=== PATIENT | male | born 1985 | race Two or more races ===

== ENCOUNTER → 2022-06-24 15:37 | Emergency (ER) | payer BC, OTHER ==
[~2022-06-24] VITALS: Ht 177.8 cm; Wt 75.0 kg
[2022-06-24 16:22] LABS: Basophils # (auto) 0 10 ^3/uL (0-0.2); Basophils % (auto) 0.3 % (0.0-2.0); Eosinophils # (auto) 0.1 10 ^3/uL (0-0.8); Eosinophils % (auto) 0.9 % (0.0-7.0); Hematocrit 45.1 % (41.0-53.0); Hemoglobin 15.5 g/dL (13.5-17.5); Lymphocytes # (auto) 2.3 10 ^3/uL (0.4-5.4); Lymphocytes % (auto) 26.7 % (10.0-50.0); Mean Corpuscular Hemoglobin 30.6 pg (28.0-32.0); Mean Corpuscular Hgb Conc. 34.4 g/dL (32.0-36.0); Mean Corpuscular Volume 88.9 fL (80.0-100.0); Monocytes # (auto) 0.4 10 ^3/uL (0-1.3); Monocytes % (auto) 4.6 % (0.0-12.0); Neutrophils # (auto) 5.9 10 ^3/uL (1.6-8.6); Neutrophils % (auto) 67.5 % (37.0-80.0); Nucleated Red Blood Cells % 0.1 %; Red Blood Cells 5.08 10^6/uL (4.5-5.90); Red Cell Distribution Width 12.8 % (11.8-14.3); White Blood Cell 8.7 10^3/uL (4.4-10.8)
[2022-06-24 16:41] LABS: Albumin 4.1 g/dL (3.4-5.0); Calcium 9.1 mg/dL (8.5-10.1); Potassium 3.7 mmol/L (3.5-5.1)
[2022-06-24 16:43] LABS: BUN/Creatinine Ratio 17.4
[2022-06-24 16:46] LABS: Bilirubin, Total 0.5 mg/dL (0.2-1.0); Total Protein 7.4 g/dL (6.4-8.2)
[2022-06-24 17:39] VITALS: BP 125/84
== END | disposition short-term general hospital (02) ==
LOC: ER 15:37 → EDBD 15:37 → ER 17:40
DX: R07.89 Other chest pain (principal); F17.210 Nicotine dependence, cigarettes, uncomplicated; J45.909 Unspecified asthma, uncomplicated; Z85.048 Personal history of other malignant neoplasm of rectum, rectosigmoid junction, and anus
CPT/HCPCS: 36415; 71045; 80053; 83735; 83880; 84484; 85025; 85379; 93005

== ENCOUNTER 2023-08-13 05:48 | Emergency (ER) | payer BC, OTHER ==
[~2023-08-13] VITALS: Ht 167.6 cm; Wt 75.7 kg
[2023-08-13] MEDS ORDERED: MORPHINE SULFATE 4 MG/ML SYR/VIAL IV ONE (07:15)
[2023-08-13] MEDS ORDERED: ONDANSETRON HCL 4 MG/2 ML VIAL IV ONE (07:15)
[2023-08-13] MEDS ORDERED: methylPREDNISolone SOD SUCC 125 MG/2 ML VL IV ONE (07:15)
[2023-08-13 07:50] VITALS: TEMP 98.7; O2SAT 97
[2023-08-13 08:16] VITALS: BP 138/87; PULSE 86; RESP 17
[2023-08-13] MEDS ORDERED: PRED20TA2 PO (08:31)
[2023-08-13] MEDS ORDERED: PERCOT PO (08:31)
== END 2023-08-13 08:36 | disposition home or self-care (01) ==
LOC: EDBD 05:48 → ER 05:48
DX: S39.012A Strain of muscle, fascia and tendon of lower back, initial encounter (principal); M54.16 Radiculopathy, lumbar region; J45.909 Unspecified asthma, uncomplicated; F17.210 Nicotine dependence, cigarettes, uncomplicated; X50.1XXA Overexertion from prolonged static or awkward postures, initial encounter; Y93.01 Activity, walking, marching and hiking; Y92.89 Other specified places as the place of occurrence of the external cause; Y99.8 Other external cause status
CPT/HCPCS: 72131; 96374; 96375; 99285; J2270; J2405; J2930

== ENCOUNTER → 2025-03-16 | Day surgery (SDC) | payer MEDICAID ==
[2025-03-13 14:30] LABS: Hematocrit 46.6 % (41.0-53.0); Hemoglobin 15.9 g/dL (13.5-17.5); Mean Corpuscular Hemoglobin 31.4 pg (28.0-32.0); Mean Corpuscular Volume 91.9 fL (80.0-100.0); Nucleated Red Blood Cells % 0.0 %
[2025-03-13 14:32] LABS: Urine Protein, UAD Negative (Negative)
[2025-03-13 14:44] LABS: INR 1.01 (0.9-1.15); Partial Thromboplastin Time 25.3 SEC (24.5-34.5); Prothrombin Time 10.7 sec (9.3-11.8)
[2025-03-13 15:18] LABS: Alanine Aminotransferase 20 U/L (7-40); Albumin 4.4 g/dL (3.2-4.8); Alkaline Phosphatase 39 U/L (46-116); Anion Gap 5 (5-15); BUN/Creatinine Ratio 16.9 (10.0-20.0); Bilirubin, Total 1.2 mg/dL (0.2-1.0); Blood Urea Nitrogen 14 mg/dL (9-23); Calcium 10.0 mg/dL (8.7-10.4); Carbon Dioxide 30 mmol/L (20-31); Chloride 106 mmol/L (98-107); Glucose 97 mg/dL (74-106); Potassium 4.0 mmol/L (3.5-5.1); Sodium 141 mmol/L (136-145); Total Protein 6.8 g/dL (5.7-8.2)
[~2025-03-16] VITALS: Ht 167.6 cm; Wt 76.7 kg
[~2025-03-16] MED LIST: BACL20TA PO; BENZOCAINE (DENTAL) 20 % SPRAY 60ML MT ONE; BICT1TAB4 PO; DULO20CA PO; GABA-1308 PO; HYDR-3682 PO; KETAMINE 50mg/ML 1ml syringe ONE; LIDOCAINE VISCOUS 2% 15ML UD ONE; MIDAZOLAM HCL 2MG/2ML 2ml VIAL (1mg/ml) ONE; OMEG306C OR; PROPOFOL 10 MG/ML 20 ML IV ONE; SIMETHICONE 40 MG/0.6 ML ORAL DROP ONE; TRAZ-228 PO; fentaNYL CITRATE 100 MCG/2 ML VL ONE
--- NOTE | 2025-03-16 08:40 | DVHHP2 ---
GI H&P Pre-Op Assessment Date: 03/16/25 Chief complaint:abdominal pain, heartburn and nausea HPI: per clinic note Past medical history: per clinic note Past surgical history: per clinic note Family history: per clinic note Physical exam: General: NAD, AAOX3 HEENT: PERRL, no scleral icterus, normal hearing, gums without lesions or bleeding, oropharynx clear without erythema or exudate. Neck: Supple without enlargement of the thyroid, or lymphadenopathy. Chest: Normal size and shape, no tenderness, lung hernandez clear to auscultation and percussion, nonlabored breathing. Heart: RRR, no murmur Abdomen: non-distended, no tenderness to palpation, +BS, no hepatosplenomegaly Extremities: no edema Neurological: CN II-XII intact, sensation intact in all extremities, 5+ strength in all extremities Skin: No rashes, No jaundice Assessment: - abdominal pain, heartburn and nausea Plan: - EGD - Colonoscopy - Risks (bleeding, infection, perforation, reaction to sedation medications and cardiopulmonary arrest) and benefit of the procedure were explained to patient. Patient agrees to undergo the procedure. MADISON DE LOS SANTOS MD Mar 16, 2025 08:40
--- NOTE | 2025-03-16 09:10 | DVHOP2 ---
Operative Report DATE OF OPERATION: 03/16/25 PROCEDURE: Upper Endoscopy. PREOPERATIVE INDICATION: The patient is a 39 -year-old male undergoing endoscopy for epigastric pain, nausea and heartburn. POSTOPERATIVE DIAGNOSES: 1. Mild gastritis PROCEDURE PERFORMED BY: Shashi Castro SCOPE: Olympus videoendoscope. ASA CLASS: 3 PREOPERATIVE MEDICATIONS: MAC with Dr Silva PROCEDURE IN DETAIL: After obtaining an informed consent, the patient was placed on left lateral decubitus position. The patient was then sedated with the above medications. A bite block was placed between his teeth. The endoscope was then passed through the oropharynx, into the esophagus, and through the stomach and pylorus up to the second and third part of the duodenum. The duodenum was normal in appearance. There was mild gastritis. Gastric biopsies were obtained. The GEJ was normal in appearance at 36 cm. The esophagus was normal in appearance. The endoscope was then withdrawn. The patient t olerated the procedure well without difficulty. COMPLICATIONS : None SPECIMENS: Gastric biopsies DISPOSITION: D/C to home PLAN: 1. Await for biopsy result 2. Continue with Protonix. SHASHI CASTRO MD Mar 16, 2025 09:10
--- NOTE | 2025-03-16 09:12 | DVHOP2 ---
Operative Report DATE OF OPERATION: 03/16/25 PROCEDURE: Colonoscopy. PREOPERATIVE INDICATION: The patient is a 39 -year-old male undergoing colonoscopy for LLQ pain. POSTOPERATIVE DIAGNOSES: 1. Mild diverticulosis in the left colon. PROCEDURE PERFORMED BY: Shashi Castro M.D. SCOPE: Olympus videocolonoscope. ASA CLASS: 3 PREOPERATIVE MEDICATIONS: MAC with Dr christian PROCEDURE IN DETAIL: After obtaining an informed consent, the patient was placed on left lateral decubitus position. He was then sedated with the above medications. A rectal examination was performed that was normal. The colonoscope was then passed through the anus into the rectosigmoid and through the descending, transverse, and ascending colon up to the cecum with visualization of the appendiceal orifice, base of the cecum and the ileocecal valve. No mass or polyp was observed. There was mild diverticulosis in the left colon. The colonoscope was then withdrawn. The patient tolerated the procedure well without difficulty. WITHDRAWAL TIME: 6 minutes QUALITY OF THE PREP: [place] Bowel Prep score: 5 COMPLICATIONS : None SPECIMENS: None DISPOSITION: D/C to home PLAN: 1. Pt will f/u in GI clinic SHASHI CASTRO MD Mar 16, 2025 09:11
--- NOTE | 2025-03-16 09:12 | DVHDS2 ---
Physician Discharge Progress N Final Diagnosis: gastritis diverticulosis Operations or Procedures: Operations or Procedures EGD with biopsy Colonoscopy Condition on Discharge: Good Disposition: Home Discharge Instructions: Diet: Regular Activity: No Restrictions, As Tolerated Medications: Resume previous home medications Follow Up Care: Discharge Statement: "Patient was advised to return to the ER or call 911 if any headaches, dizziness, shortness of breath, chest pain, abdominal pain, bleeding, fevers, or worsening of medical condition. Patient was counseled about treatment plan, medications, possible side effects, patientverbalized understanding. All questions were answered to the best of my ability. This discharge took greater then 30 minutes in planning, reviewing documentation, counseling the patient, and discussing with other team members." MADISON DE LOS SANTOS MD Mar 16, 2025 09:12
[2025-03-16 09:15] VITALS: PULSE 136; RESP 13; TEMP 97.6; O2SAT 100
[2025-03-16 09:45] VITALS: BP 106/70; PULSE 74; RESP 16; O2SAT 97
== END | disposition home or self-care (01) ==
LOC: GI 07:00
PROVIDERS: ATTEND Internal Medicine Gastroenterology
DX: R10.32 Left lower quadrant pain (principal); K57.30 Diverticulosis of large intestine without perforation or abscess without bleeding; K29.50 Unspecified chronic gastritis without bleeding; R10.13 Epigastric pain; B20 Human immunodeficiency virus [HIV] disease; Z98.890 Other specified postprocedural states
CPT/HCPCS: 36415; 43239; 45378; 80053; 81001; 85025; 85610; 85730; 88305; 88342; J1100; J2250; J2704; J3010; J7030